=== PATIENT | male | born 1950 | race Caucasian/White ===

== ENCOUNTER 2016-08-09 05:25 | Inpatient (IN) | payer OTHER ==
[2016-07-27 11:54] LABS: URINE BILIRUBIN NEGATIVE (Negative); URINE BLOOD TRACE (Negative); URINE COLOR YELLOW; URINE GLUCOSE-RANDOM* NEGATIVE (Negative); URINE KETONES NEGATIVE (Negative); URINE LEUKOCYTES-REFLEX NEGATIVE (Negative); URINE PROTEIN (DIPSTICK) NEGATIVE (Negative); URINE SPECIFIC GRAVITY >= 1.030 (1.003-1.035); URINE UROBILINOGEN 0.2 E.U./dl (0.2-1.0)
[2016-07-27 11:57] LABS: HEMATOCRIT 41.6 % (42.0-52.0); HEMOGLOBIN 14.2 gm/dL (14.0-18.0); MCH 31.7 pg (26.0-34.0); MCV 93.1 fL (80.0-100.0); RBC 4.47 mil/uL (4.50-6.00); RDW 13.5 % (10.5-14.5)
[2016-07-27 12:08] LABS: ALBUMIN 4.2 g/dL (3.4-5.0); CALCIUM 9.3 mg/dL (8.5-10.1); CREATININE 0.9 mg/dL (0.7-1.3); POTASSIUM 4.7 mmol/L (3.5-5.1)
[2016-07-27 12:09] LABS: PROTIME 10.1 Seconds (9.3-11.4)
[2016-08-09] VITALS (11 sets, daily range): BP systolic 105–136; BP diastolic 60–79
[~2016-08-09] VITALS: Ht 172.7 cm; Wt 86.2 kg
--- NOTE | ~2016-08-09 | H ---
[facility] [place] [address] HISTORY AND PHYSICAL Name: PIOTR JOY Room #: 533-P [facility] IN M.R.#: [id number] Admission: 08/09/16 Attend Phys: Malachi Hernandez MD Discharge: 08/10/16 Date of : 52 Report #: [id number] THIS REPORT FOR: //name// For History and Physical, please see office documentation/handwritten note in the patient's medical record. <ELECTRONICALLY SIGNED> By: Malachi Hernandez MD 08/15/16 1509 0901 aMlachi Hernandez MD /
--- NOTE | ~2016-08-09 | O ---
[facility] [place] [address] OPERATIVE REPORT Name: PIOTR JOY Room #: 533-P [facility] IN M.R.#: [id number] Admission: 08/09/16 Attend Phys: Malachi Hernandez MD Discharge: 08/10/16 Date of : 52 Report #: [id number] THIS REPORT FOR: //name// CC: Bunny Hernandez DATE OF SERVICE: 08/09/2016 PREOPERATIVE DIAGNOSIS: Right knee osteoarthritis. POSTOPERATIVE DIAGNOSIS: Right knee osteoarthritis. PROCEDURE: Right total knee arthroplasty. SURGEON: Malachi Hernandez MD. SUPERVISOR LOOPING: Chayo Pepper PA-C. ANESTHESIA: LMA with an adductor canal block. IMPLANTS: [employer]hew size 7 Legion Oxinium posterior stabilized femur, size 6 tibia, size 35 patella, and a size 10 polyethylene. TOURNIQUET TIME: 72 minutes. ESTIMATED BLOOD LOSS: 50 mL. COMPLICATIONS: None. SPECIMENS: None. CONDITION UPON LEAVING THE OPERATING ROOM: Stable. INDICATIONS FOR PROCEDURE: This patient is a 65-year-old gentleman with severe right knee osteoarthritis. He had failed conservative treatment for this, and after discussion with he and his , they elected for right total knee arthroplasty. DESCRIPTION OF PROCEDURE: Risks, benefits, alternatives, and complications were discussed in detail with the patient including but not limited to risk of anesthesia, risk of damage to nerves, arteries, blood vessels, risk for infection and bleeding, risk for continued knee pain and need for reoperation. An informed consent was obtained from the patient. The right knee was appropriately marked in the preoperative holding area. An adductor canal block was placed by anesthesia. IV Ancef was given for preoperative antibiotics. He was brought to the operating room, and placed in the supine position on the [address] [address] OPERATIVE REPORT Name: PIOTR JOY Room #: 533-P [facility] IN Elvin.Jarad.#: [id number] Admission: 08/09/16 Attend Phys: Malachi Hernandez MD Discharge: 08/10/16 Date of : 52 Report #: [id number] operating room table. LMA anesthesia was induced without complication. Tourniquet was placed on the right thigh. Right lower extremity was prepped and draped in normal sterile fashion. Timeout was performed, properly identifying the patient and procedure, as well as the instrumentation. All in the operating room were in agreement. Right lower extremity was exsanguinated, tourniquet was inflated. Tourniquet time was 72 minutes. A standard midline approach to the knee was made with #10 blade through the skin. Dissection was taken down to the fascia. Deep flaps were developed medially and laterally. Fresh #10 blade was used to make a medial parapatellar arthrotomy, and the knee was inspected. There was extensive tricompartmental osteoarthritic change. Anterior horns of the meniscus were removed sharply. The patella was everted, and the knee was flexed. The ACL and PCL were removed sharply. Drill was used to gain access to the canal of the femur. Distal femoral cutting block was pinned in to place. Distal femoral cut was made. Femur was sized, found to be of size 7 and size 7 four-in-one cutting block was placed. The anterior, posterior, and chamfer cuts were made. Attention was then turned to the tibia. Drill was used to gain access to the canal, and tibial resection was based off the lateral plateau. Tibial resection was made with a saw. After this, the posterior osteophytes were removed from the femur. Flexion and extension gaps were checked and found to be tight medially. A limited medial release was performed using the pie crust technique. This balanced the knee well, and the tibia was sized, and size 6 tibial trial was placed. Size 7 femoral trial was placed, and the box cut was made. Post was placed, and a size 9 polyethylene was placed. Knee was taken through range of motion, found to be stable, found to have good balance in flexion and extension. After this, 9 mm was taken off the posterior surface of the patella and a size 35 patellar trial button was placed. Knee was taken through range of motion, found to be stable, found to have good patellar tracking. Trial components were all removed. Bony ends were thoroughly irrigated with normal saline. A final size 6 tibia, size 7 Legion Oxinium posterior stabilized femur, and a size 35 patella were cemented in place using standard cementation techniques. After the cement cured, the tourniquet was deflated. Hemostasis was obtained with Bovie cautery. The knee was then trialed with a size 9, and then a size 10 polyethylene. Size 10 had a better fit. A final size 10 polyethylene was placed. A periarticular injection consisting of morphine, ropivacaine, Toradol, and epinephrine was placed around the knee joint. The fascia was closed with 0 Vicryl. Skin was closed with 2-0 Vicryl and 3-0 Monocryl, Dermabond, and Aquacel. The patient tolerated this procedure well and went to the recovery room under the care of anesthesia postoperatively. <ELECTRONICALLY SIGNED> By: Malachi Hernandez MD 08/12/16 [id number] Malachi Hernandez MD /nt
[~2016-08-09 05:25] MED LIST: ASPIRIN325 PO; ENDOCET 5-3251 EACH PO; HYDROCODONE-AP1 EAC6 PO; KEFLEX500 M1 PO; MOBIC15 MG PO; MS CONTIN15 MG PO; NEURONTIN 300300 M1 PO; PERCOCET 5-3251 EACH PO
[2016-08-10 04:30] VITALS: BP 108/72
[2016-08-10 05:01] LABS: HEMATOCRIT 35.4 % (42.0-52.0); MCH 31.4 pg (26.0-34.0); MCHC 33.9 g/dL (28.0-37.0); MCV 92.7 fL (80.0-100.0); RBC 3.82 mil/uL (4.50-6.00); RDW 13.5 % (10.5-14.5); WBC 15.6 thou/uL (4.0-11.0)
[2016-08-10 07:15] VITALS: BP 106/60
[2016-08-10] MEDS ORDERED: CVS BUFFERED A325 MG PO (12:01)
[2016-08-10] MEDS ORDERED: MS CONTIN15 MG PO (12:03)
[2016-08-10] MEDS ORDERED: NEURONTIN 300300 M1 PO (12:04)
[2016-08-10 12:10] VITALS: BP 106/60
[2016-08-10 13:33] VITALS: BP 106/60
== END 2016-08-10 13:18 | disposition home or self-care (01) | DRG 470 ==
LOC: 5S 05:25 → TBA 05:25 → PRE 09:31 → 5S 11:00 → PRE 12:30 → 5S 08-10 13:18
PROVIDERS: Orthopaedic Surgery
PROC: 0SRC0J9 Replacement of Right Knee Joint with Synthetic Substitute, Cemented, Open Approach (ICD-10-PCS; principal; 2016-08-09)
DX: M17.11 Unilateral primary osteoarthritis, right knee (principal); Z96.652 Presence of left artificial knee joint; Z82.61 Family history of arthritis
CPT/HCPCS: 10785; 50010; 50101; 50415; 50612; 50954; 51130; 51225; 51771; 52256; 53000; 53078; 53365; 54118; 56527; 56528; 57095; 62110; 62900; 70005